=== PATIENT | female | born 1945 | race Caucasian/White ===

== ENCOUNTER 2017-04-27 16:17 | Inpatient (IN) ==
[2017-04-27] MEDS ORDERED: HYDROmorphone 2 MG/1 ML VIAL IV STA (18:55)
[2017-04-27] MEDS ORDERED: PANTOPRAZOLE 40 MG VIAL IV STA ×2 (18:55→21:57)
[2017-04-27] MEDS ORDERED: ONDANSETRON 4 MG/2 ML VIAL IV STA (18:55)
[2017-04-27] MEDS ORDERED: ALUM/MAG/SIMETH/LIDO VISC 1:1 30 ML BOTTLE PO STA (18:55)
[2017-04-27] MEDS ORDERED: SODIUM CHLORIDE 0.9% 500 ML IV STA (18:55)
[2017-04-27 19:18] LABS: Basophils # 0.1 10*3/uL (0.0-0.2); Basophils % 0.7 % (0.0-0.8); Eosinophils # 0.2 10*3/uL (0.0-0.87); Eosinophils % 1.7 % (0.00-10.9); Hematocrit 41.3 VOL% (35.7-47.0); Hemoglobin 14.8 GM/DL (12.0-16.0); Immature Granulocytes % 0.6 %; Immature Granulocytes Absolute 0.07 #; Lymphocytes # 3.2 10*3/uL (1.4-4.0); Mean Corpuscular HGB Conc 35.8 GM/DL (32-36); Mean Corpuscular Hemoglobin 30 PG (27-34); Mean Corpuscular Volume 84.5 FL (87-102); Mean Platelet Volume 14.5 FL (9.6-12.0); Monocytes # 0.9 10*3/uL (0.11-0.8); Monocytes % 7.6 % (1.7-12.7); Neutrophils # 7.7 10*3/uL (1.4-7.4); Neutrophils % 63.4 % (38.7-73.9); Platelet Count 202 T/CUMM (130-400); Red Blood Count 4.89 MC/CUMM (3.8-5.5); Red Cell Distribution Width 13.1 % (9.3-17.3); White Blood Count 12.1 T/CUMM (4-12)
[2017-04-27] MEDS ORDERED: PANTOPRAZOLE 40 MG VIAL IV ONE (19:24)
[2017-04-27] MEDS ORDERED: MORPHINE 2 MG/1 ML SYRINGE ONE (19:25)
[2017-04-27] MEDS ORDERED: ALUM/MAG/SIMETH/LIDO VISC 1:1 30 ML BOTTLE PO ONE (19:25)
[2017-04-27] MEDS ORDERED: ONDANSETRON 4 MG/2 ML VIAL ONE (19:25)
[2017-04-27 19:32] LABS: Alanine Aminotransferase 33 U/L (13-56); Albumin 3.9 G/DL (3.4-5.0); Alkaline Phosphatase 216 U/L (45-117); Amylase 57 U/L (25-115); Aspartate Amino Transferase 33 U/L (0-37); Bilirubin,Total < 0.39 MG/DL (0.2-1.0); Blood Urea Nitrogen 29 MG/DL (7-18); Calcium 8.9 MG/DL (8.5-10.1); Glucose 458 MG/DL (74-106); Osmolality,Calculated 293.2 MOS/KG (273-304); Sodium 134 MMOL/L (136-145); Total Protein 7.8 G/DL (6.4-8.3); Troponin I Only 0.015 NG/ML (0.00-0.045)
[2017-04-27 19:37] LABS: Potassium 2.4 MMOL/L (3.5-5.1)
[2017-04-27] MEDS ORDERED: POTASSIUM CHLORIDE RIDER 20 MEQ in PREMIX 1 EACH IV STA (19:40)
[2017-04-27] MEDS ORDERED: INSULIN REGULAR 100 UNIT/ML IV STA (19:40)
[2017-04-27] MEDS ORDERED: METOCLOPRAMIDE 10 MG/2 ML VIAL IV STA (19:43)
[2017-04-27] MEDS ORDERED: HYDROmorphone 2 MG/1 ML VIAL ONE (19:49)
[2017-04-27] MEDS ORDERED: INSULIN REGULAR 100 UNIT/ML ONE (19:50)
[2017-04-27] MEDS ORDERED: POTASSIUM CHLORIDE RIDER 200 ML IV ONE (20:00)
[2017-04-27 20:17] LABS: Lactic Acid 1.8 MMOL/L (0.4-2.0)
[2017-04-27 20:21] LABS: Apearance,Urine CLEAR (Clear); Bacteria,Urine Occasional /HPF (Few); Bilirubin,Urine Negative (Negative); Blood, Urine Moderate mg/dL (Negative); Glucose,Urine (UA) >=500 mg/dL (Negative); Hyaline Casts,Urine 3 /LPF (0-3); Ketones,Urine Negative (Negative); Mucus,Urine Occasional /LPF (Occasional); Nitrite,Urine Negative (Negative); Protein,Urine 30 MG/DL; RBC,Urine 1 /HPF (0-4); Urine Color Yellow (Yellow); Urine Specific Gravity 1.009 (1.001-1.035); Urine Urobilinogen < 2.0 EU/DL (0.2-1.0); WBC,Urine 9 /HPF (0-6)
[2017-04-27] MEDS ORDERED: cefTRIAXone 1,000 MG in SODIUM CHLORIDE 0.9% 100 ML IV STA (20:29)
[2017-04-27] MEDS ORDERED: PROMETHAZINE 25 MG/1 ML VIAL IM STA (21:20)
[2017-04-27] MEDS ORDERED: MORPHINE 2 MG/1 ML SYRINGE IV PRN (21:51)
[2017-04-27] MEDS ORDERED: ONDANSETRON 4 MG/2 ML VIAL IV PRN (21:51)
[2017-04-27] MEDS ORDERED: GLUCAGON 1 MG VIAL IM PRN (21:57)
[2017-04-27] MEDS ORDERED: DEXTROSE 50% 25 GM/50 ML VIAL IV PRN (21:57)
[2017-04-27] MEDS ORDERED: PROMETHAZINE 25 MG/1 ML VIAL ONE (22:07)
[2017-04-27] MEDS ORDERED: cefTRIAXone 1,000 MG VIAL ONE (22:11)
[2017-04-27] MEDS: SODIUM CHLORIDE 0.9% 1,000 ML IV SCH (23:31)
[2017-04-27] MEDS: ENOXAPARIN 30 MG/0.3 ML SYRINGE SUBCUT SCH (23:31)
[2017-04-28 05:00] LABS: Basophils % 0.3 % (0.0-0.8); Eosinophils % 0.3 % (0.00-10.9); Hematocrit 41.9 VOL% (35.7-47.0); Hemoglobin 14.4 GM/DL (12.0-16.0); Immature Granulocytes % 0.4 %; Immature Granulocytes Absolute 0.06 #; Lymphocytes # 1.8 10*3/uL (1.4-4.0); Lymphocytes % 12.7 % (21.3-54.2); Mean Corpuscular HGB Conc 34.4 GM/DL (32-36); Mean Corpuscular Hemoglobin 29 PG (27-34); Mean Corpuscular Volume 85.7 FL (87-102); Mean Platelet Volume 13.6 FL (9.6-12.0); Monocytes # 0.8 10*3/uL (0.11-0.8); Neutrophils # 11.1 10*3/uL (1.4-7.4); Neutrophils % 80.3 % (38.7-73.9); Platelet Count 174 T/CUMM (130-400); Red Blood Count 4.89 MC/CUMM (3.8-5.5); Red Cell Distribution Width 13.1 % (9.3-17.3); White Blood Count 13.8 T/CUMM (4-12)
[2017-04-28 05:24] LABS: Calcium 8.8 MG/DL (8.5-10.1); Osmolality,Calculated 285.8 MOS/KG (273-304); Potassium 2.9 MMOL/L (3.5-5.1)
[2017-04-28 05:28] LABS: Band Neutrophils 8 % (0-10); Lymphocytes 16 % (20-55); Metamyelocytes 1 %; Segmented Neutrophils 66 % (50-85); Total Cells Counted 100
[2017-04-28 05:29] LABS: Hypochromasia 1+; Microcytosis Slight; Platelet Estimate Adequate
[2017-04-28] MEDS ORDERED: INSULIN LISPRO 100 UNIT/ML SUBCUT SCH (07:30)
[2017-04-28] MEDS: INSULIN LISPRO 100 UNIT/ML SUBCUT SCH ×4 (08:31→21:10)
[2017-04-28] MEDS: PANTOPRAZOLE 40 MG TABLET PO SCH (08:31)
[2017-04-28] MEDS: SODIUM CHLORIDE 0.9% 1,000 ML IV SCH (12:57)
[2017-04-28] MEDS: POTASSIUM CHLORIDE RIDER 10 MEQ in PREMIX 1 EACH IV SCH ×5 (12:58→22:42)
[2017-04-28] MEDS: CLOPIDOGREL 75 MG TABLET PO SCH (12:58)
[2017-04-28] MEDS: ASPIRIN EC 81 MG TABLET PO SCH (12:58)
[2017-04-28] MEDS: INSULIN GLARGINE 100 UNIT/ML SUBCUT SCH (13:00)
[2017-04-28] MEDS: PRAVASTATIN 40 MG TABLET PO SCH (21:11)
[2017-04-28] MEDS: cefTRIAXone 1,000 MG in SYRINGE 1 EACH IV SCH (21:12)
[2017-04-28] MEDS: ENOXAPARIN 30 MG/0.3 ML SYRINGE SUBCUT SCH (22:10)
[2017-04-29] MEDS: SODIUM CHLORIDE 0.9% 1,000 ML IV SCH (02:52)
[2017-04-29 05:46] LABS: Basophils # 0.1 10*3/uL (0.0-0.2); Basophils % 0.5 % (0.0-0.8); Eosinophils # 0.1 10*3/uL (0.0-0.87); Eosinophils % 1.1 % (0.00-10.9); Hematocrit 34.1 VOL% (35.7-47.0); Hemoglobin 11.8 GM/DL (12.0-16.0); Immature Granulocytes % 0.4 %; Immature Granulocytes Absolute 0.05 #; Lymphocytes # 3.1 10*3/uL (1.4-4.0); Lymphocytes % 25.4 % (21.3-54.2); Mean Corpuscular HGB Conc 34.6 GM/DL (32-36); Mean Corpuscular Hemoglobin 29 PG (27-34); Mean Corpuscular Volume 84.6 FL (87-102); Mean Platelet Volume 14.1 FL (9.6-12.0); Monocytes # 0.8 10*3/uL (0.11-0.8); Monocytes % 6.8 % (1.7-12.7); Neutrophils # 7.9 10*3/uL (1.4-7.4); Neutrophils % 65.8 % (38.7-73.9); Platelet Count 159 T/CUMM (130-400); Red Blood Count 4.03 MC/CUMM (3.8-5.5); Red Cell Distribution Width 13.5 % (9.3-17.3)
[2017-04-29 06:03] LABS: Calcium 7.5 MG/DL (8.5-10.1); Osmolality,Calculated 285.3 MOS/KG (273-304)
[2017-04-29 06:20] LABS: Potassium 2.3 MMOL/L (3.5-5.1)
[2017-04-29] MEDS: ASPIRIN EC 81 MG TABLET PO SCH (08:59)
[2017-04-29] MEDS: PANTOPRAZOLE 40 MG TABLET PO SCH (08:59)
[2017-04-29] MEDS: POTASSIUM CHLORIDE 20 MEQ TABLET PO SCH ×4 (08:59→14:29)
[2017-04-29] MEDS: CLOPIDOGREL 75 MG TABLET PO SCH (08:59)
[2017-04-29] MEDS: INSULIN GLARGINE 100 UNIT/ML SUBCUT SCH (08:59)
[2017-04-29] MEDS ORDERED: POTASSIUM CHLORIDE 20 MEQ TABLET PO SCH (09:00)
[2017-04-29] MEDS: INSULIN LISPRO 100 UNIT/ML SUBCUT SCH ×4 (09:00→22:29)
[2017-04-29] MEDS: CARVEDILOL 3.125 MG TABLET PO SCH ×2 (17:23→22:09)
[2017-04-29] MEDS ORDERED: INSULIN NPH/REGULAR 70/30 100 UNIT/ML SUBCUT SCH (19:00)
[2017-04-29] MEDS ORDERED: SERTRALINE 50 MG TABLET PO SCH (21:00)
[2017-04-29] MEDS: PRAVASTATIN 40 MG TABLET PO SCH (22:10)
[2017-04-29] MEDS: ENOXAPARIN 30 MG/0.3 ML SYRINGE SUBCUT SCH (22:12)
[2017-04-29] MEDS: cefTRIAXone 1,000 MG in SYRINGE 1 EACH IV SCH (22:17)
[2017-04-30 06:03] LABS: Calcium 7.8 MG/DL (8.5-10.1); Osmolality,Calculated 286.3 MOS/KG (273-304); Potassium 3.8 MMOL/L (3.5-5.1)
[2017-04-30 07:57] VITALS: BP 112/55
[2017-04-30] MEDS: CARVEDILOL 3.125 MG TABLET PO SCH (08:40)
[2017-04-30] MEDS: PANTOPRAZOLE 40 MG TABLET PO SCH (08:40)
[2017-04-30] MEDS: INSULIN LISPRO 100 UNIT/ML SUBCUT SCH (08:40)
[2017-04-30] MEDS: ASPIRIN EC 81 MG TABLET PO SCH (08:40)
[2017-04-30] MEDS: CLOPIDOGREL 75 MG TABLET PO SCH (08:40)
[2017-04-30] MEDS ORDERED: INSULIN NPH/REGULAR 70/30 100 UNIT/ML SUBCUT SCH ×2 (09:00→19:00)
== END 2017-04-30 11:25 | disposition home health service (06) | DRG 683 ==
LOC: N.EDINP 16:17 → N.ED 16:17 → N.SDSINP 22:36 → N.TELEN 22:36 → UNDODISOB 04-30 11:25
PROVIDERS: ADMIT Internal Medicine; ATTEND Internal Medicine

== ENCOUNTER 2018-02-22 08:28 | Observation (INO) ==
[2018-02-22] MEDS ORDERED: ASPIRIN 325 MG TABLET PO STA (09:08)
[2018-02-22] MEDS ORDERED: NITROGLYCERIN 2% OINT 1 INCH/GM PACK TOP STA (09:11)
[2018-02-22] MEDS ORDERED: ENOXAPARIN 60 MG/0.6 ML SYRINGE SUBCUT STA (09:11)
[2018-02-22] MEDS ORDERED: MORPHINE 4 MG/1 ML VIAL IV PRN (09:12)
[2018-02-22] MEDS ORDERED: ONDANSETRON 4 MG/2 ML VIAL IV PRN ×2 (09:12→11:24)
[2018-02-22 09:49] LABS: Basophils # 0.1 10*3/uL (0.0-0.2); Basophils % 0.9 % (0.0-0.8); Eosinophils # 0.3 10*3/uL (0.0-0.87); Eosinophils % 3.3 % (0.00-10.9); Hematocrit 39.6 VOL% (35.7-47.0); Immature Granulocytes % 0.5 %; Immature Granulocytes Absolute 0.04 #; Lymphocytes % 37.1 % (21.3-54.2); Mean Corpuscular HGB Conc 32.8 GM/DL (32-36); Mean Corpuscular Hemoglobin 30 PG (27-34); Monocytes # 0.5 10*3/uL (0.11-0.8); Monocytes % 6.5 % (1.7-12.7); Neutrophils # 4.1 10*3/uL (1.4-7.4); Neutrophils % 51.7 % (38.7-73.9); Platelet Count 183 T/CUMM (130-400); Red Cell Distribution Width 13.5 % (9.3-17.3)
[2018-02-22 09:57] LABS: PT Patient Result 10.7 SECS; Partial Thromboplastin Time 26.1 SECS (0-40)
[2018-02-22 10:31] LABS: Apearance,Urine CLEAR (Clear); Bilirubin,Urine Negative (Negative); Blood, Urine Negative (Negative); Glucose,Urine (UA) Negative (Negative); Ketones,Urine Negative (Negative); Mucus,Urine Occasional /LPF (Occasional); Nitrite,Urine Negative (Negative); Protein,Urine Negative; RBC,Urine <1 /HPF (0-4); Squamous Epithelial Cell,Urine Occasional /HPF (0-10); Urine Color Colorless (Yellow); Urine Specific Gravity 1.005 (1.001-1.035); Urine Urobilinogen < 2.0 EU/DL (0.2-1.0); WBC,Urine <1 /HPF (0-6)
[2018-02-22 10:45] LABS: Barbiturates Screen,Urine Negative (Negative); Benzodiazepines Screen,Urine Negative (Negative); Cannabinoid Screen,Urine Negative (Negative); Opiate Screen,Urine Negative (Negative); Phencyclidine Screen,Urine Negative (Negative)
[2018-02-22 10:54] LABS: Albumin 3.5 G/DL (3.4-5.0); Bilirubin,Total 0.5 MG/DL (0.2-1.0); Calcium 9.6 MG/DL (8.5-10.1); Osmolality,Calculated 291.1 MOS/KG (273-304); Potassium 4.1 MMOL/L (3.5-5.1); Total Protein 7.1 G/DL (6.4-8.3)
[2018-02-22] MEDS ORDERED: MAGNESIUM SULF RIDER 4 GM in PREMIX 1 EACH IV PRN (11:24)
[2018-02-22] MEDS ORDERED: ZALEPLON 5 MG CAPSULE PO PRN (11:24)
[2018-02-22] MEDS ORDERED: DOCUSATE SODIUM 100 MG CAPSULE PO PRN (11:24)
[2018-02-22] MEDS ORDERED: MAGNESIUM SULF RIDER 2 GM in PREMIX 1 EACH IV PRN (11:24)
[2018-02-22] MEDS ORDERED: BISACODYL 5 MG TABLET PO PRN (11:24)
[2018-02-22] MEDS ORDERED: diphenhydrAMINE CAP 25 MG CAPSULE PO PRN (11:24)
[2018-02-22] MEDS ORDERED: POTASSIUM CHLORIDE 20 MEQ TABLET PO PRN (11:24)
[2018-02-22] MEDS ORDERED: guaiFENesin/DM ER 600-30 MG TABLET PO PRN (11:24)
[2018-02-22] MEDS ORDERED: ACETAMINOPHEN 325 MG TABLET PO PRN (11:24)
[2018-02-22] MEDS ORDERED: PANTOPRAZOLE 40 MG TABLET PO SCH (11:30)
[2018-02-22 13:28] LABS: Troponin I < 0.015 NG/ML (0.00-0.045)
[2018-02-22] MEDS ORDERED: GABAPENTIN 100 MG CAPSULE PO PRN (14:48)
[2018-02-22] MEDS ORDERED: LOSARTAN 25 MG TABLET PO SCH (15:00)
[2018-02-22 16:42] LABS: Troponin I < 0.015 NG/ML (0.00-0.045)
[2018-02-22] MEDS: ISOSORBIDE MONONITRATE 30 MG TABLET PO SCH ×2 (17:38→21:21)
[2018-02-22] MEDS ORDERED: INSULIN NPH/REGULAR 70/30 100 UNIT/ML SUBCUT SCH (21:00)
[2018-02-22] MEDS ORDERED: SIMVASTATIN 40 MG TABLET PO SCH (21:00)
[2018-02-22] MEDS: CARVEDILOL 3.125 MG TABLET PO SCH (21:21)
[2018-02-22] MEDS: PANTOPRAZOLE 40 MG TABLET PO SCH (21:21)
[2018-02-23 04:38] LABS: Basophils # 0.1 10*3/uL (0.0-0.2); Basophils % 0.7 % (0.0-0.8); Eosinophils # 0.3 10*3/uL (0.0-0.87); Eosinophils % 2.8 % (0.00-10.9); Hematocrit 36.9 VOL% (35.7-47.0); Hemoglobin 11.8 GM/DL (12.0-16.0); Immature Granulocytes % 0.3 %; Immature Granulocytes Absolute 0.03 #; Lymphocytes # 3.7 10*3/uL (1.4-4.0); Lymphocytes % 38.5 % (21.3-54.2); Mean Corpuscular Hemoglobin 29 PG (27-34); Mean Corpuscular Volume 91.8 FL (87-102); Mean Platelet Volume 13.2 FL (9.6-12.0); Monocytes # 0.8 10*3/uL (0.11-0.8); Monocytes % 8.5 % (1.7-12.7); Neutrophils # 4.7 10*3/uL (1.4-7.4); Neutrophils % 49.2 % (38.7-73.9); Platelet Count 195 T/CUMM (130-400); Red Blood Count 4.02 MC/CUMM (3.8-5.5); Red Cell Distribution Width 13.7 % (9.3-17.3); White Blood Count 9.6 T/CUMM (4-12)
[2018-02-23 05:02] LABS: Calcium 8.8 MG/DL (8.5-10.1); Osmolality,Calculated 288.4 MOS/KG (273-304); Potassium 4.1 MMOL/L (3.5-5.1); Risk Ratio 3.82; VLDL CHOLESTEROL 36.2 MG/DL
[2018-02-23 08:12] VITALS: BP 121/54
[2018-02-23] MEDS ORDERED: ASPIRIN EC 81 MG TABLET PO SCH (09:00)
[2018-02-23] MEDS ORDERED: INSULIN NPH/REGULAR 70/30 100 UNIT/ML SUBCUT SCH (09:00)
[2018-02-23] MEDS ORDERED: CLOPIDOGREL 75 MG TABLET PO SCH (09:00)
[2018-02-23] MEDS ORDERED: ENOXAPARIN 40 MG/0.4 ML SYRINGE SUBCUT SCH (09:00)
[2018-02-23] MEDS ORDERED: FUROSEMIDE 40 MG TABLET PO SCH (09:00)
[2018-02-23] MEDS ORDERED: SERTRALINE 50 MG TABLET PO SCH (09:00)
[2018-02-23] MEDS: CARVEDILOL 3.125 MG TABLET PO SCH (10:15)
[2018-02-23] MEDS: ISOSORBIDE MONONITRATE 30 MG TABLET PO SCH (10:16)
[2018-02-23] MEDS: PANTOPRAZOLE 40 MG TABLET PO SCH (10:16)
== END 2018-02-23 10:27 | disposition home or self-care (01) ==
LOC: N.ED 08:28 → N.EDINP 08:28 → N.2W 13:13 → N.TELEN 16:27
PROVIDERS: ADMIT Internal Medicine Cardiovascular Disease; ATTEND Internal Medicine Cardiovascular Disease

== ENCOUNTER 2019-08-15 16:30 | Inpatient (IN) ==
[2019-08-15 17:56] LABS: Basophils # 0.1 10*3/uL (0.0-0.2); Basophils % 0.7 % (0.0-0.8); Eosinophils # 0.4 10*3/uL (0.0-0.87); Eosinophils % 3.3 % (0.00-10.9); Hematocrit 34.8 VOL% (35.7-47.0); Immature Granulocytes % 0.7 %; Immature Granulocytes Absolute 0.08 #; Lymphocytes # 2.8 10*3/uL (1.4-4.0); Lymphocytes % 23.6 % (21.3-54.2); Mean Corpuscular HGB Conc 31.6 GM/DL (32-36); Mean Corpuscular Volume 91.8 FL (87-102); Mean Platelet Volume 13.5 FL (9.6-12.0); Monocytes % 7.5 % (1.7-12.7); Neutrophils % 64.2 % (38.7-73.9); Platelet Count 203 T/CUMM (130-400); Red Blood Count 3.79 MC/CUMM (3.8-5.5); Red Cell Distribution Width 13.5 % (9.3-17.3)
[2019-08-15 17:59] LABS: Apearance,Urine CLEAR (Clear); Bilirubin,Urine Negative (Negative); Blood, Urine Moderate mg/dL (Negative); Glucose,Urine (UA) Negative (Negative); Ketones,Urine Negative (Negative); Nitrite,Urine Negative (Negative); Protein,Urine Negative; RBC,Urine 8 /HPF (0-4); Squamous Epithelial Cell,Urine Occasional /HPF (0-10); Urine Color Yellow (Yellow); Urine Urobilinogen < 2.0 EU/DL (0.2-1.0); WBC,Urine 10 /HPF (0-6)
[2019-08-15 18:12] LABS: Alanine Aminotransferase 36 U/L (13-56); Albumin 2.8 G/DL (3.4-5.0); Alkaline Phosphatase 418 U/L (45-117); Aspartate Amino Transferase 29 U/L (0-37); Blood Urea Nitrogen 28 MG/DL (7-18); Calcium 9.2 MG/DL (8.5-10.1); Estimated Glom Filtration Rate 33 ML/MIN; Glucose 113 MG/DL (74-106); Osmolality,Calculated 281.7 MOS/KG (273-304); Total Protein 7.2 G/DL (6.4-8.3)
[2019-08-15 18:23] LABS: Microcytosis 1+
[2019-08-15 18:24] LABS: Platelet Estimate Adequate; Polychromasia Few; Spherocytes Few
[2019-08-15] MEDS ORDERED: FUROSEMIDE 40 MG/4 ML VIAL IV STA (20:11)
[2019-08-15] MEDS ORDERED: ALBUTEROL/IPRATROPIUM 3 ML NEB RESP TX STA (20:12)
[2019-08-15 22:55] LABS: INR 1.4; PT Patient Result 14.3 SECS (9.8-11.9)
[2019-08-15 23:25] LABS: Ferritin 49.6 ng/ml (8-252)
[2019-08-16] MEDS ORDERED: GLUCAGON 1 MG VIAL IM PRN (00:16)
[2019-08-16] MEDS ORDERED: ONDANSETRON 4 MG/2 ML VIAL IV PRN (00:16)
[2019-08-16] MEDS ORDERED: DEXTROSE 10% 250 ML BAG IV PRN ×2 (00:16→11:56)
[2019-08-16] MEDS ORDERED: ALBUTEROL/IPRATROPIUM 3 ML NEB RESP TX PRN (00:16)
[2019-08-16] MEDS ORDERED: BISACODYL 10 MG SUPP RECTAL ONE (00:16)
[2019-08-16] MEDS ORDERED: SODIUM CHLORIDE 0.9% 100 ML IV ONE (00:32)
[2019-08-16] MEDS: ENOXAPARIN 30 MG/0.3 ML SYRINGE SUBCUT SCH (00:40)
[2019-08-16] MEDS: INSULIN LISPRO 100 UNIT/ML SUBCUT SCH ×5 (00:50→22:04)
[2019-08-16] MEDS: cefTRIAXone 1,000 MG in SYRINGE 1 EACH IV SCH (00:51)
[2019-08-16 05:34] LABS: Calcium 8.6 MG/DL (8.5-10.1); Osmolality,Calculated 285.3 MOS/KG (273-304); Risk Ratio 3.71
[2019-08-16 06:30] LABS: Basophils # 0.1 10*3/uL (0.0-0.2); Basophils % 0.6 % (0.0-0.8); Eosinophils # 0.3 10*3/uL (0.0-0.87); Eosinophils % 2.7 % (0.00-10.9); Hematocrit 31.6 VOL% (35.7-47.0); Hemoglobin 10.2 GM/DL (12.0-16.0); Immature Granulocytes % 0.6 %; Immature Granulocytes Absolute 0.07 #; Lymphocytes # 2.8 10*3/uL (1.4-4.0); Lymphocytes % 25.5 % (21.3-54.2); Mean Corpuscular HGB Conc 32.3 GM/DL (32-36); Mean Corpuscular Volume 90.3 FL (87-102); Mean Platelet Volume 13.2 FL (9.6-12.0); Monocytes % 8.6 % (1.7-12.7); Platelet Count 227 T/CUMM (130-400); Red Cell Distribution Width 13.4 % (9.3-17.3); White Blood Count 11.1 T/CUMM (4-12)
[2019-08-16 07:16] LABS: Anisocytosis 1+; Platelet Estimate Normal
[2019-08-16 07:18] LABS: Macrocytosis Slight; Misc Morphology 5S
[2019-08-16] MEDS: FUROSEMIDE 40 MG/4 ML VIAL IV SCH ×2 (09:26→16:38)
[2019-08-16] MEDS: POLYETHYLENE GLYCOL POWDER 17 GM PACK PO SCH (10:09)
[2019-08-16] MEDS ORDERED: MAGNESIUM CITRATE 300 ML BOTTLE PO ONE (16:24)
[2019-08-17] MEDS: cefTRIAXone 1,000 MG in SYRINGE 1 EACH IV SCH ×2 (00:03→23:39)
[2019-08-17] MEDS: ENOXAPARIN 30 MG/0.3 ML SYRINGE SUBCUT SCH ×2 (00:03→23:39)
[2019-08-17 06:31] LABS: Basophils # 0.1 10*3/uL (0.0-0.2); Basophils % 0.5 % (0.0-0.8); Eosinophils # 0.3 10*3/uL (0.0-0.87); Eosinophils % 1.8 % (0.00-10.9); Hematocrit 35.2 VOL% (35.7-47.0); Hemoglobin 11.3 GM/DL (12.0-16.0); Immature Granulocytes % 0.7 %; Immature Granulocytes Absolute 0.09 #; Lymphocytes # 3.1 10*3/uL (1.4-4.0); Lymphocytes % 23.2 % (21.3-54.2); Mean Corpuscular HGB Conc 32.1 GM/DL (32-36); Mean Corpuscular Volume 90.5 FL (87-102); Mean Platelet Volume 12.3 FL (9.6-12.0); Monocytes % 7.2 % (1.7-12.7); Neutrophils % 66.6 % (38.7-73.9); Platelet Count 254 T/CUMM (130-400); Red Blood Count 3.89 MC/CUMM (3.8-5.5); Red Cell Distribution Width 13.3 % (9.3-17.3); White Blood Count 13.6 T/CUMM (4-12)
[2019-08-17 06:37] LABS: Calcium 8.9 MG/DL (8.5-10.1); Osmolality,Calculated 281.8 MOS/KG (273-304)
[2019-08-17 07:17] LABS: Band Neutrophils 1 % (0-10); Hypochromasia 2+; Lymphocytes 21 % (20-55); Microcytosis 1+; Platelet Estimate Normal; Polychromasia Slight; Segmented Neutrophils 71 % (50-85); Total Cells Counted 100
[2019-08-17] MEDS: POLYETHYLENE GLYCOL POWDER 17 GM PACK PO SCH (09:13)
[2019-08-17] MEDS: INSULIN LISPRO 100 UNIT/ML SUBCUT SCH ×4 (10:25→20:43)
[2019-08-17] MEDS: FUROSEMIDE 40 MG/4 ML VIAL IV SCH ×2 (10:25→16:46)
[2019-08-17] MEDS ORDERED: GABAPENTIN 100 MG CAPSULE PO PRN (15:43)
[2019-08-17] MEDS: CLOPIDOGREL 75 MG TABLET PO SCH (16:46)
[2019-08-17] MEDS: carvediloL 3.125 MG TABLET PO SCH (20:43)
[2019-08-17] MEDS: SIMVASTATIN 40 MG TABLET PO SCH (20:43)
[2019-08-18 03:42] LABS: Basophils # 0.1 10*3/uL (0.0-0.2); Basophils % 0.6 % (0.0-0.8); Eosinophils # 0.2 10*3/uL (0.0-0.87); Eosinophils % 1.8 % (0.00-10.9); Hematocrit 35.3 VOL% (35.7-47.0); Hemoglobin 11.3 GM/DL (12.0-16.0); Immature Granulocytes % 0.7 %; Immature Granulocytes Absolute 0.09 #; Lymphocytes # 3.3 10*3/uL (1.4-4.0); Lymphocytes % 27.8 % (21.3-54.2); Mean Corpuscular Volume 90.3 FL (87-102); Mean Platelet Volume 12.4 FL (9.6-12.0); Monocytes % 7.3 % (1.7-12.7); Neutrophils % 61.8 % (38.7-73.9); Platelet Count 289 T/CUMM (130-400); Red Blood Count 3.91 MC/CUMM (3.8-5.5); Red Cell Distribution Width 13.4 % (9.3-17.3)
[2019-08-18 04:01] LABS: Osmolality,Calculated 283.8 MOS/KG (273-304)
[2019-08-18] MEDS ORDERED: POTASSIUM CHLORIDE 20 MEQ TABLET PO ONE (08:01)
[2019-08-18] MEDS: INSULIN LISPRO 100 UNIT/ML SUBCUT SCH ×4 (09:00→20:26)
[2019-08-18] MEDS: FUROSEMIDE 40 MG/4 ML VIAL IV SCH ×2 (09:00→16:49)
[2019-08-18] MEDS: CLOPIDOGREL 75 MG TABLET PO SCH (09:07)
[2019-08-18] MEDS: carvediloL 3.125 MG TABLET PO SCH ×2 (09:07→16:49)
[2019-08-18] MEDS: CYANOCOBALAMIN 500 MCG TABLET PO SCH (09:07)
[2019-08-18] MEDS: CHOLECALCIFEROL 400 UNIT TABLET PO SCH (09:07)
[2019-08-18] MEDS: POLYETHYLENE GLYCOL POWDER 17 GM PACK PO SCH (09:08)
[2019-08-18] MEDS: SIMVASTATIN 40 MG TABLET PO SCH (20:26)
[2019-08-18] MEDS: ACETAMINOPHEN 325 MG TABLET PO PRN (23:01)
[2019-08-19] MEDS: cefTRIAXone 1,000 MG in SYRINGE 1 EACH IV SCH (00:02)
[2019-08-19] MEDS: ENOXAPARIN 30 MG/0.3 ML SYRINGE SUBCUT SCH (00:02)
[2019-08-19 08:34] VITALS: BP 126/64
[2019-08-19] MEDS: FUROSEMIDE 40 MG/4 ML VIAL IV SCH (09:05)
[2019-08-19] MEDS: CYANOCOBALAMIN 500 MCG TABLET PO SCH (09:05)
[2019-08-19] MEDS: carvediloL 3.125 MG TABLET PO SCH (09:05)
[2019-08-19] MEDS: INSULIN LISPRO 100 UNIT/ML SUBCUT SCH ×2 (09:05→11:24)
[2019-08-19] MEDS: CLOPIDOGREL 75 MG TABLET PO SCH (09:05)
[2019-08-19] MEDS: POLYETHYLENE GLYCOL POWDER 17 GM PACK PO SCH (09:06)
[2019-08-19] MEDS: CHOLECALCIFEROL 400 UNIT TABLET PO SCH (09:10)
[2019-08-19] MEDS: ACETAMINOPHEN 325 MG TABLET PO PRN (09:10)
== END 2019-08-19 12:06 | disposition home health service (06) | DRG 291 ==
LOC: N.ED 16:30 → SUATTDRO 19:37 → N.EDINP 19:37 → N.TELEN 08-16 09:42
PROVIDERS: ADMIT Internal Medicine; ATTEND Internal Medicine Geriatric Medicine

== ENCOUNTER 2019-12-15 10:27 | Inpatient (IN) ==
[2019-12-15 11:29] LABS: Basophils % 0.4 % (0.0-0.8); Eosinophils % 0.4 % (0.00-10.9); Hematocrit 38.1 VOL% (35.7-47.0); Hemoglobin 12.1 GM/DL (12.0-16.0); Immature Granulocytes % 0.4 %; Immature Granulocytes Absolute 0.03 #; Lymphocytes # 2.3 10*3/uL (1.4-4.0); Lymphocytes % 29.5 % (21.3-54.2); Mean Corpuscular HGB Conc 31.8 GM/DL (32-36); Mean Corpuscular Volume 88.6 FL (87-102); Mean Platelet Volume 13.9 FL (9.6-12.0); Monocytes % 10.1 % (1.7-12.7); Neutrophils % 59.2 % (38.7-73.9); Platelet Count 121 T/CUMM (130-400); Red Cell Distribution Width 15.7 % (9.3-17.3); White Blood Count 7.9 T/CUMM (4-12)
[2019-12-15 12:04] LABS: Albumin 3.5 G/DL (3.4-5.0); Bilirubin,Total 0.4 MG/DL (0.2-1.0); Total Protein 7.6 G/DL (6.4-8.3)
[2019-12-15 12:12] LABS: Atypical Lymphocytes Few; Hypochromasia 1+; Lymphocytes 33 % (20-55); Microcytosis Slight; Platelet Estimate Normal; Segmented Neutrophils 55 % (50-85); Total Cells Counted 100
[2019-12-15] MEDS ORDERED: ONDANSETRON 4 MG/2 ML VIAL ONE (12:45)
[2019-12-15] MEDS ORDERED: ONDANSETRON 4 MG/2 ML VIAL IV STA ×2 (12:54→14:54)
[2019-12-15 13:17] LABS: Bilirubin,Urine Negative (Negative); Blood, Urine Small mg/dL (Negative); Glucose,Urine (UA) Negative (Negative); Ketones,Urine Negative (Negative); Nitrite,Urine Negative (Negative); Protein,Urine Negative; RBC,Urine 22 /HPF (0-4); Squamous Epithelial Cell,Urine Occasional /HPF (0-10); Urine Appearance CLOUDY (Clear); Urine Color Yellow (Yellow); Urine Specific Gravity 1.013 (1.001-1.035); Urine Urobilinogen < 2.0 EU/DL (0.2-1.0); WBC,Urine 1370 /HPF (0-6)
[2019-12-15] MEDS ORDERED: DEXTROSE 50% 25 GM/50 ML SYRINGE IV PRN (14:46)
[2019-12-15] MEDS ORDERED: GLUCAGON 1 MG VIAL IM PRN (14:46)
[2019-12-15] MEDS: SODIUM CHLORIDE 0.9% 1,000 ML IV SCH (16:53)
[2019-12-15] MEDS: HEPARIN 5,000 UNIT/1 ML VIAL SUBCUT SCH ×2 (16:53→22:22)
[2019-12-15] MEDS: MEROPENEM 500 MG in SODIUM CHLORIDE 0.9% 100 ML IV SCH (16:53)
[2019-12-15] MEDS: INSULIN LISPRO 100 UNIT/ML SUBCUT SCH ×2 (18:00→20:17)
[2019-12-16] MEDS: ACETAMINOPHEN 325 MG TABLET PO PRN (00:11)
[2019-12-16] MEDS: MEROPENEM 500 MG in SODIUM CHLORIDE 0.9% 100 ML IV SCH ×2 (03:49→14:10)
[2019-12-16 05:39] LABS: Basophils % 0.5 % (0.0-0.8); Eosinophils % 0.2 % (0.00-10.9); Hematocrit 34.5 VOL% (35.7-47.0); Hemoglobin 10.9 GM/DL (12.0-16.0); Immature Granulocytes % 0.5 %; Immature Granulocytes Absolute 0.03 #; Lymphocytes # 2.4 10*3/uL (1.4-4.0); Lymphocytes % 41.6 % (21.3-54.2); Mean Corpuscular HGB Conc 31.6 GM/DL (32-36); Mean Corpuscular Volume 88.9 FL (87-102); Mean Platelet Volume 14.4 FL (9.6-12.0); Neutrophils % 49.2 % (38.7-73.9); Platelet Count 113 T/CUMM (130-400); Red Blood Count 3.88 MC/CUMM (3.8-5.5); Red Cell Distribution Width 15.8 % (9.3-17.3); White Blood Count 5.7 T/CUMM (4-12)
[2019-12-16 06:07] LABS: Calcium 8.4 MG/DL (8.5-10.1); Osmolality,Calculated 295.3 MOS/KG (273-304)
[2019-12-16 06:10] LABS: Ferritin 64.5 ng/ml (8-252)
[2019-12-16] MEDS: HEPARIN 5,000 UNIT/1 ML VIAL SUBCUT SCH ×3 (06:15→22:45)
[2019-12-16] MEDS: INSULIN LISPRO 100 UNIT/ML SUBCUT SCH ×4 (08:14→20:23)
[2019-12-16] MEDS: ONDANSETRON 4 MG/2 ML VIAL IV PRN ×2 (08:35→14:50)
[2019-12-16] MEDS: SODIUM CHLORIDE 0.9% 1,000 ML IV SCH ×2 (09:34→22:45)
[2019-12-17] MEDS: MEROPENEM 500 MG in SODIUM CHLORIDE 0.9% 100 ML IV SCH ×2 (02:45→15:06)
[2019-12-17 05:30] LABS: Basophils % 0.3 % (0.0-0.8); Hemoglobin 11.2 GM/DL (12.0-16.0); Immature Granulocytes % 0.8 %; Immature Granulocytes Absolute 0.05 #; Lymphocytes # 2.8 10*3/uL (1.4-4.0); Lymphocytes % 46.9 % (21.3-54.2); Mean Corpuscular HGB Conc 32.9 GM/DL (32-36); Mean Platelet Volume 13.7 FL (9.6-12.0); Monocytes % 7.1 % (1.7-12.7); Neutrophils % 44.9 % (38.7-73.9); Platelet Count 118 T/CUMM (130-400); Red Blood Count 3.82 MC/CUMM (3.8-5.5); Red Cell Distribution Width 15.9 % (9.3-17.3)
[2019-12-17 05:54] LABS: Hypochromasia 1+
[2019-12-17 05:55] LABS: Microcytosis Slight; Platelet Estimate Adequate
[2019-12-17 05:57] LABS: Alanine Aminotransferase 21 U/L (13-56); Albumin 2.6 G/DL (3.4-5.0); Alkaline Phosphatase 161 U/L (45-117); Aspartate Amino Transferase 33 U/L (0-37); Bilirubin,Total < 0.39 MG/DL (0.2-1.0); Blood Urea Nitrogen 38 MG/DL (7-18); Calcium 8.2 MG/DL (8.5-10.1); Estimated Glom Filtration Rate 29 ML/MIN; Ferritin 117.8 ng/ml (8-252); Glucose 141 MG/DL (74-106); Osmolality,Calculated 296.8 MOS/KG (273-304); Total Protein 5.7 G/DL (6.4-8.3)
[2019-12-17] MEDS: INSULIN LISPRO 100 UNIT/ML SUBCUT SCH ×4 (08:48→21:52)
[2019-12-17] MEDS: ONDANSETRON 4 MG/2 ML VIAL IV PRN ×2 (09:20→17:40)
[2019-12-17] MEDS: HEPARIN 5,000 UNIT/1 ML VIAL SUBCUT SCH ×3 (09:20→22:24)
[2019-12-17] MEDS: SODIUM CHLORIDE 0.9% 1,000 ML IV SCH (15:06)
[2019-12-17] MEDS: PROMETHAZINE 25 MG/1 ML VIAL IM PRN (19:58)
[2019-12-18] MEDS: MEROPENEM 500 MG in SODIUM CHLORIDE 0.9% 100 ML IV SCH (03:03)
[2019-12-18] MEDS: HEPARIN 5,000 UNIT/1 ML VIAL SUBCUT SCH ×3 (06:08→23:15)
[2019-12-18 06:32] LABS: Basophils % 0.2 % (0.0-0.8); Hematocrit 33.7 VOL% (35.7-47.0); Hemoglobin 10.7 GM/DL (12.0-16.0); Immature Granulocytes % 1.4 %; Immature Granulocytes Absolute 0.06 #; Lymphocytes # 1.4 10*3/uL (1.4-4.0); Lymphocytes % 32.1 % (21.3-54.2); Mean Corpuscular HGB Conc 31.8 GM/DL (32-36); Mean Corpuscular Volume 90.3 FL (87-102); Mean Platelet Volume 13.3 FL (9.6-12.0); Neutrophils % 60.3 % (38.7-73.9); Platelet Count 102 T/CUMM (130-400); Red Blood Count 3.73 MC/CUMM (3.8-5.5); Red Cell Distribution Width 15.9 % (9.3-17.3); White Blood Count 4.4 T/CUMM (4-12)
[2019-12-18 06:47] LABS: Ferritin 1227.7 ng/ml (8-252)
[2019-12-18 06:51] LABS: Albumin 2.6 G/DL (3.4-5.0); Bilirubin,Total 0.7 MG/DL (0.2-1.0); Calcium 8.9 MG/DL (8.5-10.1)
[2019-12-18 06:59] LABS: Platelet Estimate Decreased
[2019-12-18 07:00] LABS: Hypochromasia 1+; Microcytosis Slight
[2019-12-18] MEDS: INSULIN LISPRO 100 UNIT/ML SUBCUT SCH ×4 (07:49→21:03)
[2019-12-18] MEDS: SODIUM CHLORIDE 0.9% 1,000 ML IV SCH (08:07)
[2019-12-18] MEDS: PROMETHAZINE 25 MG/1 ML VIAL IM PRN (21:02)
[2019-12-19] MEDS: SODIUM CHLORIDE 0.9% 1,000 ML IV SCH ×2 (01:44→15:31)
[2019-12-19 05:49] LABS: Basophils % 0.4 % (0.0-0.8); Hematocrit 34.6 VOL% (35.7-47.0); Immature Granulocytes % 1.3 %; Lymphocytes # 1.3 10*3/uL (1.4-4.0); Lymphocytes % 16.5 % (21.3-54.2); Mean Corpuscular HGB Conc 31.8 GM/DL (32-36); Mean Corpuscular Volume 90.1 FL (87-102); Mean Platelet Volume 13.6 FL (9.6-12.0); Monocytes % 4.5 % (1.7-12.7); Neutrophils % 77.3 % (38.7-73.9); Platelet Count 146 T/CUMM (130-400); Red Blood Count 3.84 MC/CUMM (3.8-5.5)
[2019-12-19 06:06] LABS: Ferritin 742.6 ng/ml (8-252)
[2019-12-19 06:08] LABS: Albumin 2.6 G/DL (3.4-5.0); Bilirubin,Total 0.9 MG/DL (0.2-1.0); Calcium 8.9 MG/DL (8.5-10.1); Osmolality,Calculated 306.4 MOS/KG (273-304); Total Protein 6.1 G/DL (6.4-8.3)
[2019-12-19 06:14] LABS: Hypochromasia Slight; Microcytosis Slight; Platelet Estimate Adequate
[2019-12-19] MEDS: HEPARIN 5,000 UNIT/1 ML VIAL SUBCUT SCH ×3 (06:20→22:26)
[2019-12-19] MEDS: INSULIN LISPRO 100 UNIT/ML SUBCUT SCH ×4 (08:22→21:24)
[2019-12-19] MEDS: ONDANSETRON 4 MG/2 ML VIAL IV PRN (08:58)
[2019-12-19] MEDS ORDERED: SIMETHICONE CHEW 125 MG TABLET PO PRN (09:54)
[2019-12-19] MEDS ORDERED: MAGNESIUM CITRATE 300 ML BOTTLE PO ONE (09:55)
[2019-12-19] MEDS: ACETAMINOPHEN 325 MG TABLET PO PRN (15:08)
[2019-12-19] MEDS: carvediloL 3.125 MG TABLET PO SCH (16:40)
[2019-12-19] MEDS: PANTOPRAZOLE 40 MG VIAL IV SCH (21:25)
[2019-12-19] MEDS: METOCLOPRAMIDE 10 MG/2 ML VIAL IV SCH (23:55)
[2019-12-20] MEDS: SODIUM CHLORIDE 0.9% 1,000 ML IV SCH ×4 (02:13→22:03)
[2019-12-20 04:05] LABS: Basophils % 0.2 % (0.0-0.8); Hematocrit 30.8 VOL% (35.7-47.0); Immature Granulocytes % 2.5 %; Immature Granulocytes Absolute 0.16 #; Lymphocytes # 1.3 10*3/uL (1.4-4.0); Lymphocytes % 20.7 % (21.3-54.2); Mean Corpuscular HGB Conc 32.5 GM/DL (32-36); Mean Corpuscular Volume 88.5 FL (87-102); Mean Platelet Volume 13.2 FL (9.6-12.0); Monocytes % 3.8 % (1.7-12.7); NRBC # 0.03 10*3/uL; Neutrophils % 72.8 % (38.7-73.9); Platelet Count 123 T/CUMM (130-400); Red Blood Count 3.48 MC/CUMM (3.8-5.5); Red Cell Distribution Width 16.3 % (9.3-17.3); White Blood Count 6.3 T/CUMM (4-12)
[2019-12-20 04:57] LABS: Albumin 2.3 G/DL (3.4-5.0); Bilirubin,Total 0.7 MG/DL (0.2-1.0); Calcium 8.8 MG/DL (8.5-10.1); Osmolality,Calculated 305.4 MOS/KG (273-304); Total Protein 5.6 G/DL (6.4-8.3)
[2019-12-20 04:58] LABS: Ferritin 4255.8 ng/ml (8-252)
[2019-12-20 05:36] LABS: Microcytosis 1+
[2019-12-20 05:37] LABS: Hypochromasia Slight; Platelet Estimate Adequate
[2019-12-20] MEDS: METOCLOPRAMIDE 10 MG/2 ML VIAL IV SCH ×3 (05:52→17:51)
[2019-12-20] MEDS: HEPARIN 5,000 UNIT/1 ML VIAL SUBCUT SCH ×2 (08:45→16:11)
[2019-12-20] MEDS: POLYETHYLENE GLYCOL POWDER 17 GM PACK PO SCH (08:46)
[2019-12-20] MEDS: PANTOPRAZOLE 40 MG VIAL IV SCH ×2 (08:46→21:53)
[2019-12-20] MEDS: carvediloL 3.125 MG TABLET PO SCH ×2 (08:46→17:51)
[2019-12-20] MEDS: INSULIN LISPRO 100 UNIT/ML SUBCUT SCH ×4 (08:47→19:40)
[2019-12-20] MEDS: ONDANSETRON 4 MG/2 ML VIAL IV PRN ×3 (11:08→21:53)
[2019-12-20] MEDS: ACETAMINOPHEN 325 MG TABLET PO PRN (18:19)
[2019-12-21] MEDS: HEPARIN 5,000 UNIT/1 ML VIAL SUBCUT SCH ×4 (00:39→23:22)
[2019-12-21] MEDS: METOCLOPRAMIDE 10 MG/2 ML VIAL IV SCH ×4 (00:39→17:37)
[2019-12-21 04:11] LABS: Basophils % 0.2 % (0.0-0.8); Hematocrit 32.7 VOL% (35.7-47.0); Hemoglobin 10.4 GM/DL (12.0-16.0); Immature Granulocytes % 2.1 %; Immature Granulocytes Absolute 0.18 #; Lymphocytes # 1.3 10*3/uL (1.4-4.0); Lymphocytes % 14.8 % (21.3-54.2); Mean Corpuscular HGB Conc 31.8 GM/DL (32-36); Mean Corpuscular Volume 89.6 FL (87-102); Mean Platelet Volume 13.5 FL (9.6-12.0); Monocytes % 4.2 % (1.7-12.7); NRBC # 0.04 10*3/uL; Neutrophils % 78.7 % (38.7-73.9); Platelet Count 136 T/CUMM (130-400); Red Blood Count 3.65 MC/CUMM (3.8-5.5); Red Cell Distribution Width 16.8 % (9.3-17.3); White Blood Count 8.7 T/CUMM (4-12)
[2019-12-21 04:32] LABS: Albumin 2.2 G/DL (3.4-5.0); Bilirubin,Total 1.2 MG/DL (0.2-1.0); Calcium 8.4 MG/DL (8.5-10.1); Osmolality,Calculated 303.6 MOS/KG (273-304); Total Protein 5.6 G/DL (6.4-8.3)
[2019-12-21] MEDS: SODIUM CHLORIDE 0.9% 1,000 ML IV SCH ×2 (06:58→13:22)
[2019-12-21] MEDS: POLYETHYLENE GLYCOL POWDER 17 GM PACK PO SCH (09:28)
[2019-12-21] MEDS: carvediloL 3.125 MG TABLET PO SCH ×2 (09:28→17:36)
[2019-12-21] MEDS: PANTOPRAZOLE 40 MG VIAL IV SCH ×2 (09:28→20:30)
[2019-12-21] MEDS: INSULIN LISPRO 100 UNIT/ML SUBCUT SCH ×4 (09:29→20:27)
[2019-12-21] MEDS: SODIUM CHLORIDE 0.45% 1,000 ML IV SCH ×2 (12:53→23:21)
[2019-12-22] MEDS: METOCLOPRAMIDE 10 MG/2 ML VIAL IV SCH ×4 (00:20→18:59)
[2019-12-22 04:17] LABS: Basophils % 0.4 % (0.0-0.8); Hematocrit 30.9 VOL% (35.7-47.0); Hemoglobin 10.2 GM/DL (12.0-16.0); Immature Granulocytes % 2.4 %; Immature Granulocytes Absolute 0.18 #; Lymphocytes # 1.3 10*3/uL (1.4-4.0); Lymphocytes % 17.2 % (21.3-54.2); Mean Corpuscular Volume 88.5 FL (87-102); Mean Platelet Volume 13.9 FL (9.6-12.0); Monocytes % 5.1 % (1.7-12.7); NRBC # 0.08 10*3/uL; Neutrophils % 74.9 % (38.7-73.9); Platelet Count 151 T/CUMM (130-400); Red Blood Count 3.49 MC/CUMM (3.8-5.5); Red Cell Distribution Width 16.8 % (9.3-17.3); White Blood Count 7.4 T/CUMM (4-12)
[2019-12-22 04:53] LABS: Albumin 1.9 G/DL (3.4-5.0); Calcium 7.9 MG/DL (8.5-10.1); Osmolality,Calculated 297.8 MOS/KG (273-304); Total Protein 5.3 G/DL (6.4-8.3)
[2019-12-22 06:58] LABS: Band Neutrophils 15 % (0-10); Lymphocytes 15 % (20-55); Myelocytes 1 %; Nucleated Red Blood Cells 1 (0-5); Segmented Neutrophils 66 % (50-85); Total Cells Counted 100
[2019-12-22 06:59] LABS: Anisocytosis 2+; Burr Cells Few; Macrocytosis 1+; Platelet Estimate Normal
[2019-12-22] MEDS: HEPARIN 5,000 UNIT/1 ML VIAL SUBCUT SCH ×3 (08:32→23:45)
[2019-12-22] MEDS: POLYETHYLENE GLYCOL POWDER 17 GM PACK PO SCH (08:33)
[2019-12-22] MEDS: carvediloL 3.125 MG TABLET PO SCH ×2 (08:33→17:01)
[2019-12-22] MEDS: PANTOPRAZOLE 40 MG VIAL IV SCH ×2 (08:33→21:11)
[2019-12-22] MEDS: INSULIN LISPRO 100 UNIT/ML SUBCUT SCH ×4 (08:54→21:10)
[2019-12-22] MEDS: SODIUM CHLORIDE 0.45% 1,000 ML IV SCH ×2 (12:05→21:10)
[2019-12-23] MEDS: METOCLOPRAMIDE 10 MG/2 ML VIAL IV SCH ×2 (01:12→06:27)
[2019-12-23] MEDS: SODIUM CHLORIDE 0.45% 1,000 ML IV SCH ×2 (06:27→14:03)
[2019-12-23] MEDS: INSULIN LISPRO 100 UNIT/ML SUBCUT SCH ×4 (08:03→20:20)
[2019-12-23] MEDS: carvediloL 3.125 MG TABLET PO SCH ×2 (08:26→17:20)
[2019-12-23] MEDS: PANTOPRAZOLE 40 MG VIAL IV SCH (08:43)
[2019-12-23] MEDS: POLYETHYLENE GLYCOL POWDER 17 GM PACK PO SCH (08:43)
[2019-12-23] MEDS: HEPARIN 5,000 UNIT/1 ML VIAL SUBCUT SCH ×2 (08:43→14:21)
[2019-12-23 08:50] LABS: Basophils % 0.2 % (0.0-0.8); Eosinophils % 0.5 % (0.00-10.9); Hematocrit 31.3 VOL% (35.7-47.0); Immature Granulocytes % 2.3 %; Lymphocytes # 1.3 10*3/uL (1.4-4.0); Lymphocytes % 14.8 % (21.3-54.2); Mean Corpuscular HGB Conc 31.9 GM/DL (32-36); Mean Corpuscular Volume 87.9 FL (87-102); Mean Platelet Volume 13.8 FL (9.6-12.0); Monocytes % 5.9 % (1.7-12.7); NRBC # 0.06 10*3/uL; Neutrophils % 76.3 % (38.7-73.9); Platelet Count 175 T/CUMM (130-400); Red Blood Count 3.56 MC/CUMM (3.8-5.5); White Blood Count 8.6 T/CUMM (4-12)
[2019-12-23 09:24] LABS: Albumin 2.1 G/DL (3.4-5.0); Bilirubin,Total 1.1 MG/DL (0.2-1.0); Calcium 8.3 MG/DL (8.5-10.1); Osmolality,Calculated 282.8 MOS/KG (273-304); Total Protein 5.8 G/DL (6.4-8.3)
[2019-12-23 09:25] LABS: Band Neutrophils 3 % (0-10); Eosinophils 1 % (0-10); Lymphocytes 11 % (20-55); Segmented Neutrophils 74 % (50-85); Total Cells Counted 100
[2019-12-23 09:26] LABS: Hypochromasia 1+; Microcytosis 1+; Platelet Estimate Adequate
[2019-12-23 09:51] LABS: Sedimentation Rate-Westergren 63 MM/HR (0-30)
[2019-12-23] MEDS: METOCLOPRAMIDE 10 MG/10 ML UDCUP PO SCH ×3 (14:01→20:21)
[2019-12-23] MEDS ORDERED: MEGESTROL 400 MG/10 ML UDCUP PO ONE (15:00)
[2019-12-23] MEDS: ENOXAPARIN 30 MG/0.3 ML SYRINGE SUBCUT SCH (20:20)
[2019-12-23] MEDS: MEGESTROL 400 MG/10 ML UDCUP PO SCH (20:21)
[2019-12-23] MEDS: PANTOPRAZOLE 40 MG TABLET PO SCH (20:21)
[2019-12-24] MEDS: SODIUM CHLORIDE 0.45% 1,000 ML IV SCH ×3 (01:16→20:13)
[2019-12-24 03:42] LABS: Basophils % 0.5 % (0.0-0.8); Eosinophils # 0.1 10*3/uL (0.0-0.87); Eosinophils % 1.2 % (0.00-10.9); Hematocrit 28.6 VOL% (35.7-47.0); Hemoglobin 9.4 GM/DL (12.0-16.0); Immature Granulocytes % 6.8 %; Immature Granulocytes Absolute 0.51 #; Lymphocytes # 1.6 10*3/uL (1.4-4.0); Lymphocytes % 21.7 % (21.3-54.2); Mean Corpuscular HGB Conc 32.9 GM/DL (32-36); Mean Corpuscular Volume 86.7 FL (87-102); Mean Platelet Volume 13.9 FL (9.6-12.0); Monocytes % 7.7 % (1.7-12.7); NRBC # 0.07 10*3/uL; Neutrophils % 62.1 % (38.7-73.9); Platelet Count 175 T/CUMM (130-400); Red Cell Distribution Width 16.7 % (9.3-17.3); White Blood Count 7.6 T/CUMM (4-12)
[2019-12-24 04:09] LABS: Albumin 1.9 G/DL (3.4-5.0); Calcium 7.7 MG/DL (8.5-10.1); Ferritin 1180.7 ng/ml (8-252); Total Protein 5.3 G/DL (6.4-8.3)
[2019-12-24 04:36] LABS: Band Neutrophils 4 % (0-10); Eosinophils 1 % (0-10); Lymphocytes 11 % (20-55); Metamyelocytes 1 %; Nucleated Red Blood Cells 3 (0-5); Platelet Estimate Normal; Segmented Neutrophils 76 % (50-85); Total Cells Counted 100
[2019-12-24 04:37] LABS: Anisocytosis Slight; Hypochromasia Slight; Microcytosis 1+
[2019-12-24 04:38] LABS: Polychromasia Slight
[2019-12-24 05:01] LABS: Hepatitis B Core IgM Quant 0.12 Index; Hepatitis B Surface Ag Quant < 0.10 Index; Hepatitis B Surface Ag Result Negative (Negative); Hepatitis C Virus Ab Quant 0.28 Index; Hepatitis C Virus Ab Result Negative (Negative)
[2019-12-24 05:53] LABS: Sedimentation Rate-Westergren 63 MM/HR (0-30)
[2019-12-24] MEDS: PANTOPRAZOLE 40 MG TABLET PO SCH ×2 (06:06→20:13)
[2019-12-24] MEDS ORDERED: SODIUM CHLORIDE 0.9% 1,000 ML IV PRN (07:25)
[2019-12-24] MEDS: INSULIN LISPRO 100 UNIT/ML SUBCUT SCH ×4 (08:09→20:14)
[2019-12-24] MEDS: carvediloL 3.125 MG TABLET PO SCH ×2 (08:58→16:11)
[2019-12-24] MEDS: MEGESTROL 400 MG/10 ML UDCUP PO SCH ×2 (09:10→20:14)
[2019-12-24] MEDS: METOCLOPRAMIDE 10 MG/10 ML UDCUP PO SCH ×4 (09:10→20:13)
[2019-12-24] MEDS: ENOXAPARIN 30 MG/0.3 ML SYRINGE SUBCUT SCH ×2 (09:10→20:14)
[2019-12-24] MEDS: POLYETHYLENE GLYCOL POWDER 17 GM PACK PO SCH (09:10)
[2019-12-24] MEDS ORDERED: GABAPENTIN 100 MG CAPSULE PO PRN (15:49)
[2019-12-24] MEDS: ACETAMINOPHEN 325 MG TABLET PO PRN (20:13)
[2019-12-25 03:53] LABS: Basophils # 0.1 10*3/uL (0.0-0.2); Basophils % 0.5 % (0.0-0.8); Eosinophils # 0.2 10*3/uL (0.0-0.87); Eosinophils % 1.7 % (0.00-10.9); Hematocrit 28.9 VOL% (35.7-47.0); Hemoglobin 9.7 GM/DL (12.0-16.0); Immature Granulocytes % 7.3 %; Immature Granulocytes Absolute 0.69 #; Lymphocytes # 1.6 10*3/uL (1.4-4.0); Lymphocytes % 17.1 % (21.3-54.2); Mean Corpuscular HGB Conc 33.6 GM/DL (32-36); Mean Corpuscular Volume 86.8 FL (87-102); Mean Platelet Volume 13.8 FL (9.6-12.0); Monocytes % 7.3 % (1.7-12.7); NRBC # 0.07 10*3/uL; Neutrophils % 66.1 % (38.7-73.9); Platelet Count 168 T/CUMM (130-400); Red Blood Count 3.33 MC/CUMM (3.8-5.5); Red Cell Distribution Width 16.7 % (9.3-17.3); White Blood Count 9.5 T/CUMM (4-12)
[2019-12-25 04:25] LABS: Albumin 1.7 G/DL (3.4-5.0); Bilirubin,Total 1.4 MG/DL (0.2-1.0); Ferritin 759.6 ng/ml (8-252); Osmolality,Calculated 282.5 MOS/KG (273-304); Total Protein 5.1 G/DL (6.4-8.3)
[2019-12-25 05:25] LABS: Sedimentation Rate-Westergren 48 MM/HR (0-30)
[2019-12-25 07:25] LABS: Band Neutrophils 4 % (0-10); Lymphocytes 21 % (20-55); Myelocytes 1 %; Nucleated Red Blood Cells 1 (0-5); Segmented Neutrophils 67 % (50-85); Total Cells Counted 100
[2019-12-25 07:26] LABS: Hypochromasia 1+; Microcytosis 1+; Platelet Estimate Adequate
[2019-12-25 08:42] VITALS: BP 118/42
[2019-12-25] MEDS ORDERED: FUROSEMIDE 40 MG TABLET PO SCH (09:00)
[2019-12-25] MEDS ORDERED: CLOPIDOGREL 75 MG TABLET PO SCH (09:00)
[2019-12-25] MEDS: INSULIN LISPRO 100 UNIT/ML SUBCUT SCH (09:01)
[2019-12-25] MEDS: PANTOPRAZOLE 40 MG TABLET PO SCH (09:12)
[2019-12-25] MEDS: METOCLOPRAMIDE 10 MG/10 ML UDCUP PO SCH (09:12)
[2019-12-25] MEDS: carvediloL 3.125 MG TABLET PO SCH (09:12)
[2019-12-25] MEDS: POLYETHYLENE GLYCOL POWDER 17 GM PACK PO SCH (09:13)
[2019-12-25] MEDS: ENOXAPARIN 30 MG/0.3 ML SYRINGE SUBCUT SCH (09:13)
[2019-12-25] MEDS: MEGESTROL 400 MG/10 ML UDCUP PO SCH (09:13)
== END 2019-12-25 11:15 | disposition home health service (06) | DRG 871 ==
LOC: N.ED 10:27 → SUATTDRO 14:46 → N.EDINP 14:46 → N.2E 16:41
PROVIDERS: ADMIT Family Medicine; ATTEND Hospitalist